=== PATIENT | female | born 1990 | race African-American/Black ===

== ENCOUNTER 2022-03-06 10:51 | Emergency (ER) | payer BC ==
[~2022-03-06] VITALS: Ht 170.2 cm; Wt 101.0 kg
[2022-03-06 11:01] VITALS: BP 151/81
[2022-03-06] MEDS ORDERED: KETOROLAC 60MG/2ML VIAL IM ONE (11:15)
[2022-03-06] MEDS ORDERED: METHOCARBAMOL 500MG TABLET PO ONE (11:15)
[2022-03-06] MEDS ORDERED: METH-773 MT (12:55)
[2022-03-06] MEDS ORDERED: NAPR-681 MT (12:55)
[2022-03-06] MEDS ORDERED: LIDO1ADH5 TP (12:55)
== END 2022-03-06 13:07 | disposition home or self-care (01) ==
LOC: ER 10:51
DX: S00.83XA Contusion of other part of head, initial encounter (principal); M54.2 Cervicalgia; M79.662 Pain in left lower leg; V49.59XA Passenger injured in collision with other motor vehicles in traffic accident, initial encounter; Y93.89 Activity, other specified; Y92.488 Other paved roadways as the place of occurrence of the external cause
CPT/HCPCS: 72100; 73590; 96372; 99284; J1885